=== PATIENT | male | born 2000 | race Caucasian/White ===

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

== ENCOUNTER 2023-03-23 11:49 | Observation (INO) ==
[2023-03-23 11:58] VITALS: BMI 19.5
--- NOTE | 2023-03-23 12:13 | DR.BITE ---
HPI Time Seen Time Seen by Provider: 03/23/23 12:07 PCP Primary Care Physician: Gabrielle Barksdale Complaint/Symptoms Chief Complaint Doctor Comments: 22 y/o male presents with pain/swelling of right hand. Was fine last pm going to bed. Awoke at 0300 with pain, swelling, redness of the dorsal right hand. Pain is sharp, constant, radiates up the left arm. Having associated tenderness in the left axilla. Feeling warm, having chills. Pain worse with moving R fingers, palpation. Nothing makes it better. + associated nausea, abdominal cramping. Was sleeping in a bunk house, with known black widows around. Chief Complaint:: Suspected spider bite to right hand - noticed Nurses notes reviewed Nurses Notes Review: Yes Source History Provided: Patient and Parent Mode of Arrival Mode of Arrival: Ambulatory Timing Onset of Chief Complaint: 03/23/23 PMH PMH Past Medical History: Yes Past Medical History: Anemia, Anxiety, Depression, Migraines and GERD Past Surgical History: Yes Surgical History: Appendectomy Past Surgical History Comment: Oral surgery Family History History of Family Medical Conditions: No Social History Does patient currently use any type of tobacco product: Yes Have you used tobacco products in the last 12 months: Yes Type of Tobacco Use: Smokeless How many years tobacco product used: 5 Does any household member use tobacco: Yes Alcohol Use: Occasionally Do you use any recreational Drugs:: No Lives With: Family Lives Where: Home Infectious screening Have you traveled outside the country in the last 6 months?: No Isolation: Standard ROS Review of Systems Constitutional: Chills Eyes: No Symptoms Reported ENTM: No Symptoms Reported Respiratoy: No Symptoms Reported Cardiovascular: Palpitations Gastrointestinal/Abdominal: Abdominal Pain and Nausea Genitourinary: No Symptoms Reported Neurological: No Symptoms Reported Musculoskeletal: Muscle Pain Integumentary: No Symptoms Reported Hematologic/Lymphatic: No Symptoms Reported All Other Systems: Reviewed and Negative PE Vital Signs Vital Signs: Temp Pulse Resp BP Pulse Ox O2 Del Method 09/24/17 10:39 133/59 03/23/23 14:22 18 03/23/23 12:56 18 03/23/23 12:55 18 03/23/23 11:51 99.1 F 74 123/56 98 Room Air Constitutional General Appearance: Alert and In No Apparent Distress Eyes Eye exam: PERRL and EOMI ENT ENT Exam: Mucous Membranes Moist Neck Neck Exam: Normal Inspection Respiratory Respiratory Exam: Normal Lung Sounds Bilat; negative Accessory Muscle Use or Re spiratory Distress Cardiovascular Cardiovascular Exam: Regular Rate, Normal Rhythm and Normal Heart Sounds Abdominal Exam Abdominal Exam: Normal Bowel Sounds and Soft; negative Tenderness Extremities Extremities Exam: negative Edema Back Back Exam: Normal Inspection Other Exam Other Exam: R hand - + tender, erythema with swelling, or dorsal R hand, between 3rd/4th MCP jts, w/1 mm opening of center. + streaking up dorsal R hand, into forearm. + pain with ROM of fingers. COURSE Treatment Treatment: 22 y/o male awoke with R hand pain, does appear to be from a spider bite (was fine going to bed few hours prior). W/u initiated. PT given IV fluids, IV toradol/dilaudid/zofran. 1520 -WBC elevated to 15K. Labs otherwise acceptable. X-ray acceptable. Pt given IV clindamycin. Recommend admission for further treatment. Possible black bite, in view of his associated symptoms. Call put out to Dr Smith, drafter refrigeration for admissions. Pt admitted. ROR Labs Reviewed Laboratory Results Reviewed?: Yes Result Diagrams: 03/23/23 12:45 03/23/23 12:45 Laboratory: WBC 15.1 X10^3/uL (3.6-10.0) H 03/23/23 12:45 RBC 4.90 X10^6/uL (4.7-6.0) 03/23/23 12:45 Hgb 15.2 g/dL (13.5-18.0) 03/23/23 12:45 Hct 43.3 % (42.0-54.0) 03/23/23 12:45 MCV 88.4 fL (80.0-100.0) 03/23/23 12:45 MCH 31.0 pg (27.0-34.0) 03/23/23 12:45 MCHC 35.1 g/dL (33.0-35.0) H 03/23/23 12:45 RDW 12.5 % (11.6-16.5) 03/23/23 12:45 Plt Count 263 X10^3/uL (150.0-450.0) 03/23/23 12:45 MPV 7.5 fL (7.4-11.0) 03/23/23 12:45 Neut % (Auto) 85.7 % (42.0-75.0) H 03/23/23 12:45 Lymph % (Auto) 4.1 % (21.0-51.0) L 03/23/23 12:45 [place] % (Auto) 10.1 % (0.0-13.0) 03/23/23 12:45 Eos % (Auto) 0.0 % (0.9-2.9) L 03/23/23 12:45 Baso % (Auto) 0.1 % (0.2-1.0) L 03/23/23 12:45 Neut # (Auto) 13.0 x10^3/uL (2.2-4.8) H 03/23/23 12:45 Lymph # (Auto) 0.6 X10^3/uL (1.3-2.9) L 03/23/23 12:45 [place] # (Auto) 1.5 x10^3/uL (0.3-0.8) H 03/23/23 12:45 Eos # (Auto) 0.0 x10^3/uL (0.0-0.2) 03/23/23 12:45 Baso # (Auto) 0.0 X10^3/uL (0.0-0.1) 03/23/23 12:45 Absolute Nucleated RBC 0.0 /100WBC 03/23/23 12:45 Sodium 138 mmol/L (136-145) 03/23/23 12:45 Corrected Sodium TNP 03/23/23 12:45 Potassium 3.8 mmol/L (3.5-5.1) 03/23/23 12:45 Chloride 100 mmol/L (98-107) 03/23/23 12:45 Carbon Dioxide 28.5 mmol/L (21-32) 03/23/23 12:45 BUN 12 mg/dL (7-18) 03/23/23 12:45 Creatinine 0.97 mg/dL (0.70-1.30) 03/23/23 12:45 Est GFR (MDRD) Af Amer > 60 (>60) 03/23/23 12:45 Est GFR (MDRD) Non-Af > 60 (>60) 03/23/23 12:45 Glucose 93 mg/dL (65-99) 03/23/23 12:45 Lactic Acid 1.0 mmol/L (0.4-2.0) 03/23/23 12:45 Calcium 8.4 mg/dL (8.5-10.1) L 03/23/23 12:45 Corrected Calcium TNP 03/23/23 12:45 Total Bilirubin 1.50 mg/dL (0.2-1.0) H 03/23/23 12:45 AST 25 Units/L (15-37) 03/23/23 12:45 ALT 37 Units/L (12-78) 03/23/23 12:45 Alkaline Phosphatase 67 Units/L (46-116) 03/23/23 12:45 Creatine Kinase 146 Units/L (39-308) 03/23/23 12:45 Total Protein 7.0 g/dL (6.4-8.2) 03/23/23 12:45 Albumin 4.1 g/dL (3.4-5.0) 03/23/23 12:45 Globulin 2.9 g/dL (2.5-4.5) 03/23/23 12:45 Albumin/Globulin Ratio 1.4 Ratio (1.1-2.1) 03/23/23 12:45 WBC elevated XRAY XRAY Interpreted by: Self X-ray Results: No gas formation on x-ray. Opioid Opioid Risk Tool Total: 0 Total Score Risk Category: Low Risk Copyright: Rodney MILES predicting aberrant behaviors Discharge Plan Diagnosis Discharge Problem: Cellulitis and abscess of hand Discharge Plan Condition: Stable
[2023-03-23] MEDS ORDERED: DILAUDID INJ IVP ONE ×2 (12:18→14:11)
[2023-03-23] MEDS ORDERED: TORADOL 30 MG VIAL IVP ONE (12:18)
[2023-03-23] MEDS ORDERED: NS 1,000 ML IV 1,000 ML IV ONE (12:18)
[2023-03-23] MEDS ORDERED: TORADOL 30 MG VIAL ONE (12:30)
[2023-03-23] MEDS ORDERED: DILAUDID INJ ONE ×2 (12:30→14:13)
[2023-03-23] MEDS ORDERED: NS 1,000 ML IV 1,000 ML ONE ×2 (12:30→21:00)
[2023-03-23] MEDS ORDERED: ZOFRAN INJ 4 MG VIAL IVP ONE (12:33)
[2023-03-23] MEDS ORDERED: ZOFRAN INJ 4 MG VIAL ONE (12:35)
[2023-03-23 12:56] LABS: HEMOGLOBIN 15.2 g/dL (13.5-18.0)
[2023-03-23 13:00] LABS: BASOPHILS % (AUTO) 0.1 % (0.2-1.0); HEMATOCRIT 43.3 % (42.0-54.0); LYMPHOCYTES # (AUTO) 0.6 X10^3/uL (1.3-2.9); LYMPHOCYTES % (AUTO) 4.1 % (21.0-51.0); MEAN CORPUSCULAR HGB CONC 35.1 g/dL (33.0-35.0); MEAN CORPUSCULAR VOLUME 88.4 fL (80.0-100.0); MEAN PLATELET VOLUME 7.5 fL (7.4-11.0); MONOCYTES # (AUTO) 1.5 x10^3/uL (0.3-0.8); MONOCYTES % (AUTO) 10.1 % (0.0-13.0); NEUTROPHILS % (AUTO) 85.7 % (42.0-75.0); PLATELET COUNT 263 X10^3/uL (150.0-450.0); RED CELL DISTRIBUTION WIDTH 12.5 % (11.6-16.5); WHITE BLOOD COUNT 15.1 X10^3/uL (3.6-10.0)
[2023-03-23 13:08] LABS: ALANINE AMINOTRANSFERASE 37 Units/L (12-78); ALBUMIN 4.1 g/dL (3.4-5.0); ALKALINE PHOSPHATASE 67 Units/L (46-116); ASPARTATE AMINO TRANSFERASE 25 Units/L (15-37); BLOOD UREA NITROGEN 12 mg/dL (7-18); CALCIUM 8.4 mg/dL (8.5-10.1); CARBON DIOXIDE 28.5 mmol/L (21-32); CHLORIDE 100 mmol/L (98-107); CREATINE KINASE 146 Units/L (39-308); CREATININE 0.97 mg/dL (0.70-1.30); GLUCOSE 93 mg/dL (65-99); POTASSIUM 3.8 mmol/L (3.5-5.1); SODIUM 138 mmol/L (136-145); eGFR NON BLACK RACES > 60 (>60)
[2023-03-23] MEDS ORDERED: CLEOCIN 600 MG IV PREMIX 600 MG/50 ML BAG IV ONE ×2 (14:10→14:13)
[2023-03-23] MEDS ORDERED: ZOFRAN INJ 4 MG VIAL IVP PRN (16:40)
[2023-03-23] MEDS: DILAUDID INJ IVP PRN ×2 (16:52→21:09)
[2023-03-23] MEDS: PHENERGAN INJ 25 MG IM PRN (19:28)
[2023-03-23] MEDS: CLEOCIN 600 MG IV PREMIX 600 MG/50 ML BAG IV SCH (21:08)
[2023-03-24] MEDS: CLEOCIN 600 MG IV PREMIX 600 MG/50 ML BAG IV SCH ×3 (05:09→21:18)
[2023-03-24 05:23] LABS: BASOPHILS % (AUTO) 0.4 % (0.2-1.0); EOSINOPHILS % (AUTO) 0.6 % (0.9-2.9); HEMATOCRIT 39.5 % (42.0-54.0); HEMOGLOBIN 13.9 g/dL (13.5-18.0); LYMPHOCYTES # (AUTO) 1.2 X10^3/uL (1.3-2.9); LYMPHOCYTES % (AUTO) 16.1 % (21.0-51.0); MEAN CORPUSCULAR HEMOGLOBIN 31.5 pg (27.0-34.0); MEAN CORPUSCULAR HGB CONC 35.2 g/dL (33.0-35.0); MEAN CORPUSCULAR VOLUME 89.3 fL (80.0-100.0); MEAN PLATELET VOLUME 8.3 fL (7.4-11.0); MONOCYTES # (AUTO) 1.4 x10^3/uL (0.3-0.8); MONOCYTES % (AUTO) 19.2 % (0.0-13.0); NEUTROPHILS # (AUTO) 4.6 x10^3/uL (2.2-4.8); NEUTROPHILS % (AUTO) 63.7 % (42.0-75.0); PLATELET COUNT 253 X10^3/uL (150.0-450.0); RED BLOOD COUNT 4.42 X10^6/uL (4.7-6.0); RED CELL DISTRIBUTION WIDTH 12.8 % (11.6-16.5); WHITE BLOOD COUNT 7.2 X10^3/uL (3.6-10.0)
[2023-03-24 05:32] LABS: ALANINE AMINOTRANSFERASE 31 Units/L (12-78); ALBUMIN 3.5 g/dL (3.4-5.0); ALKALINE PHOSPHATASE 55 Units/L (46-116); ASPARTATE AMINO TRANSFERASE 30 Units/L (15-37); BLOOD UREA NITROGEN 15 mg/dL (7-18); CALCIUM 8.2 mg/dL (8.5-10.1); CHLORIDE 102 mmol/L (98-107); CREATININE 0.92 mg/dL (0.70-1.30); GLUCOSE 101 mg/dL (65-99); POTASSIUM 3.8 mmol/L (3.5-5.1); SODIUM 139 mmol/L (136-145); TOTAL PROTEIN 6.2 g/dL (6.4-8.2); eGFR NON BLACK RACES > 60 (>60)
--- NOTE | 2023-03-24 05:38 | RAD ---
HISTORYSuspected spider bite to right hand - noticedSTUDYHAND, RIGHT four viewCOMPARISONNoneFINDINGSNo acute cortical disruption or dislocation is identified. The soft tissues appear unremarkable. The carpal bones appear aligned without evidence for fracture.IMPRESSIONNo acute fracture or dislocation.Electronically signed by: JOLENE SUMNER (Mar 24, 2023 05:37:35)
[2023-03-24] MEDS: DILAUDID INJ IVP PRN (07:30)
[2023-03-24] MEDS: PHENERGAN INJ 25 MG IM PRN (07:31)
[2023-03-24] MEDS ORDERED: NORCO 5/325 MG TAB PO PRN (09:15)
[2023-03-24] MEDS ORDERED: PEPCID TAB 40 MG ONE (09:32)
[2023-03-24] MEDS ORDERED: BENADRYL CAP/TAB 25 MG PO ONE (09:32)
[2023-03-24] MEDS: BENADRYL CAP/TAB 25 MG PO SCH ×3 (09:34→21:18)
[2023-03-24] MEDS: PEPCID TAB 40 MG PO SCH ×2 (09:34→20:02)
[2023-03-24] MEDS: TORADOL 15 MG VIAL IVP SCH ×2 (09:34→16:25)
[2023-03-24] MEDS ORDERED: DILAUDID INJ IVP ONE (17:14)
[2023-03-24] MEDS: BACTRIM DS TAB PO SCH ×2 (17:49→20:02)
[2023-03-24] MEDS: BACTROBAN TOPICAL OINT TOP SCH ×2 (17:49→21:18)
[2023-03-24] MEDS: MOTRIN TAB 600 MG PO SCH ×2 (17:49→21:18)
[2023-03-24] MEDS: NS 1,000 ML IV 1,000 ML IV SCH (17:50)
[2023-03-24] MEDS: NORCO 5/325 MG TAB PO PRN (22:02)
[2023-03-25] MEDS: TORADOL 15 MG VIAL IVP SCH (00:31)
[2023-03-25] MEDS: NS 1,000 ML IV 1,000 ML IV SCH ×5 (02:01→21:09)
[2023-03-25] MEDS: NORCO 5/325 MG TAB PO PRN ×2 (04:10→08:21)
[2023-03-25] MEDS: BENADRYL CAP/TAB 25 MG PO SCH ×4 (04:10→21:09)
[2023-03-25] MEDS ORDERED: HIBICLENS WASH ONE (05:23)
[2023-03-25] MEDS: MOTRIN TAB 600 MG PO SCH ×3 (05:53→21:08)
[2023-03-25] MEDS: BACTROBAN TOPICAL OINT TOP SCH ×3 (05:53→21:08)
[2023-03-25] MEDS: CLEOCIN 600 MG IV PREMIX 600 MG/50 ML BAG IV SCH ×3 (05:53→21:09)
[2023-03-25] MEDS: HIBICLENS WASH EXT PRN ×3 (05:54→21:08)
[2023-03-25 06:41] LABS: BASOPHILS % (AUTO) 0.8 % (0.2-1.0); EOSINOPHILS # (AUTO) 0.1 x10^3/uL (0.0-0.2); HEMATOCRIT 38.9 % (42.0-54.0); HEMOGLOBIN 13.4 g/dL (13.5-18.0); LYMPHOCYTES # (AUTO) 1.3 X10^3/uL (1.3-2.9); MEAN CORPUSCULAR HEMOGLOBIN 31.2 pg (27.0-34.0); MEAN CORPUSCULAR HGB CONC 34.3 g/dL (33.0-35.0); MEAN PLATELET VOLUME 8.3 fL (7.4-11.0); MONOCYTES # (AUTO) 0.9 x10^3/uL (0.3-0.8); MONOCYTES % (AUTO) 18.1 % (0.0-13.0); NEUTROPHILS # (AUTO) 2.7 x10^3/uL (2.2-4.8); NEUTROPHILS % (AUTO) 53.1 % (42.0-75.0); PLATELET COUNT 213 X10^3/uL (150.0-450.0); RED BLOOD COUNT 4.28 X10^6/uL (4.7-6.0); RED CELL DISTRIBUTION WIDTH 12.6 % (11.6-16.5); WHITE BLOOD COUNT 5.2 X10^3/uL (3.6-10.0)
[2023-03-25 06:44] LABS: ALANINE AMINOTRANSFERASE 29 Units/L (12-78); ALKALINE PHOSPHATASE 46 Units/L (46-116); ASPARTATE AMINO TRANSFERASE 48 Units/L (15-37); BLOOD UREA NITROGEN 11 mg/dL (7-18); CARBON DIOXIDE 26.2 mmol/L (21-32); CHLORIDE 106 mmol/L (98-107); COR CA(FOR HYPOALB) 8.8 mg/dL (8.5-10.1); CREATININE 1.03 mg/dL (0.70-1.30); GLUCOSE 86 mg/dL (65-99); SODIUM 140 mmol/L (136-145); TOTAL PROTEIN 5.6 g/dL (6.4-8.2); eGFR NON BLACK RACES > 60 (>60)
[2023-03-25] MEDS: PEPCID TAB 40 MG PO SCH ×2 (08:20→20:19)
[2023-03-25] MEDS: BACTRIM DS TAB PO SCH ×2 (08:21→20:19)
[2023-03-25] MEDS ORDERED: DILAUDID INJ IVP ONE (13:17)
[2023-03-25] MEDS ORDERED: NORCO 7.5/325 MG TAB PO PRN (13:18)
[2023-03-25] MEDS: PHENERGAN INJ 25 MG IM PRN (13:19)
[2023-03-25] MEDS: XANAX PO PRN ×2 (13:55→20:19)
--- NOTE | 2023-03-25 18:33 | DR.H&P ---
H&P - History & Physical for Day of: H&P Date: 03/23/23 - Chief Complaint Chief Complaint: PAIN WITH REDNESS AND SWELLING TO RIGHT HAND - History of Present Illness History of Present Illness: PT IS 22 WM, ER ADMISSION AFTER PRESENTING WITH CO "WOKE UP" WITH REDNESS AND SWELLING TO BASE OF RIGHT MIDDLE AND 4TH FINGER, EXTENDING UP HIS WRIST AND FA. PT REPORTS ONSET OF NAUSEA, WEAKNESS AND DIZZINESS THAT STARTING AFTER GETTING UP FROM BED ON FRIDAY MORNING. PT WAS CONCERNED ABOUT POSSIBLE "BLACK SPIDER BITE" PT DENIES ANY KNOWN BITE OR INJURY, DENIES FEELING ANY BITE OR STING SENSATIONS. PT HAS PMH OF GERD AND CLAUDE. PT ADMITTED FOR TREATMENT OF ACUTE CELLULITIS. - Past Medical History Past Medical History: Depression, Anxiety, Anemia, GERD, Migraines - Past Surgical History Surgical History: Appendectomy - Social History Does patient currently use any type of tobacco product: Yes Have you used tobacco products in the last 12 months: Yes Type of Tobacco Use: Smokeless How many years tobacco product used: 5 Does any household member use tobacco: Yes Alcohol Use: Occasionally Drug Use: None - Medications Home Medications: Home Medications Medication Instructions Recorded Confirmed Type NK 03/23/23 03/23/23 History - Review of Systems Constitutional: Fever, Chills, Sweats, Malaise Eyes: No Symptoms Reported ENT: No Symptoms Reported Respiratory: No Symptoms Reported Cardiovascular: Chest Pain Gastrointestinal: Nausea Genitourinary: No Symptoms Reported Musculoskeletal: Hand Pain Skin: Rash Neurological: Other ("VERITGO") - Physical Exam Vital Signs: Temperature 97.7 F Temperature 99.1 F Pulse Rate [Left Radial] 68 Pulse Rate 74 Respiratory Rate 18 Respiratory Rate 18 Blood Pressure [Left Arm] 120/78 Blood Pressure 123/56 O2 Sat by Pulse Oximetry 98 O2 Sat by Pulse Oximetry 98 Oriented: Normal Eyes: Normal Ear: Normal Nose: Normal Throat: Normal Respiratory: Clear Throughout Cardiovascular: Tachycardia. negative: Murmur, Edema : Normal Auscultation: Bowel Sounds: Normal Palpation: Normal Tenderness: Normal Skin: Red, Tender, Hot Musculoskeletal: Right, Hand (LOCATED AT THE BASE OF 3RD ADN 4TH MCJ), Swelling, Tender Psychiatric: Anxiety Mood Description: Anxious Affect: Anxious Speech Pattern: Clear, Appropriate - Assessment/Plan (1) Cellulitis and abscess of hand Status: Acute Plan: CULTURES OBTAINED ON ADMISSION. IV HYDRATION, PAIN AND NAUSEA CONTROL. XRAY OF R HAND ON ER ADMISSION. ELEVATE RLE, IV ATBX THERAPY, CPK ORDERED IN ER. PRN CARDIAC AND RESP THERAPY - Allergies Allergies/Adverse Reactions: Allergies Allergy/AdvReac Type Severity Reaction Status Date / Time No Known Drug Allergies Allergy Unknown Verified 03/24/23 10:23
--- NOTE | 2023-03-25 18:37 | PCM.PROG ---
Progress Note - Progress Note for Day of Date of Exam: 03/24/23 - Subjective Subjective: PT IS 22 WM, ER ADMISSION WITH CELLULITIS TO THE BASE OF 3RD AND 4TH FINGERS WITH IMPROVING REDNESS THIS MORNING. RED STREAKING TO FA AND WRIST NOW RESOLVED WITH LOCALIZED REDNESS TO BASE OF FINGERS WITH INTACT BLISTER FORMATION. WBC AT 7.2 FROM 15.1 ON ADMISSION. PT HAS BEEN ON IV CLINDAMYCIN. PT REPORTS "THROBBING" PAIN TO HAD. WOUND CARE ORDERED WITH INSTRUCTIONS FOR ELEVATING RUE. PT IS ON PEPCID, BENADRYL AND MOTRIN PO. PT HAS RECEIVED IV DILAUDID FOR PAIN CONTROL AND IV TORADOL WITH SHORT TERM RELIEF. - Past Medical Family Social History Past Med/Fam/Surg Hx: No changes since H&P Allergies: Allergies No Known Drug Allergies Allergy (Unknown, Verified 03/24/23 10:23) Onset Date: 10/14/2018 - Review of Systems ROS: No change since H&P - Vital Signs and I&O's Vital Signs: Temperature 97.7 F Temperature 99.1 F Pulse Rate [Left Radial] 68 Pulse Rate 74 Respiratory Rate 18 Respiratory Rate 18 Blood Pressure [Left Arm] 120/78 Blood Pressure 123/56 O2 Sat by Pulse Oximetry 98 O2 Sat by Pulse Oximetry 98 Intake and Output: Intake & Output 03/23/23 03/24/23 03/25/23 03/26/23 11:59 11:59 11:59 11:59 Intake Total 480 / 480 2787 / 2787 4343 / 4343 Balance 480 / 480 2787 / 2787 4343 / 4343 - Physical Exam Oriented: Normal Eyes: Normal Ear: Normal Nose: Normal Throat: Normal Cardiovascular: Tachycardia. negative: Murmur, Edema : Normal Auscultation: Bowel Sounds: Normal Tenderness: Normal Skin: Red, Tender, Hot Musculoskeletal: Right, Hand (LOCATED AT THE BASE OF 3RD ADN 4TH MCJ), Swelling, Tender Psychiatric: Anxiety Mood Description: Anxious Affect: Anxious Speech Pattern: Clear, Appropriate - Laboratory and Diagnostics Result Diagrams: 03/25/23 05:11 03/25/23 05:11 Labs: 03/23/23 13:05 Blood Blood Culture - Preliminary 03/23/23 12:45 Blood Blood Culture - Preliminary Laboratory WBC 5.2 X10^3/uL (3.6-10.0) 03/25/23 05:11 RBC 4.28 X10^6/uL (4.7-6.0) L 03/25/23 05:11 Hgb 13.4 g/dL (13.5-18.0) L 03/25/23 05:11 Hct 38.9 % (42.0-54.0) L 03/25/23 05:11 MCV 91.0 fL (80.0-100.0) 03/25/23 05:11 MCH 31.2 pg (27.0-34.0) 03/25/23 05:11 MCHC 34.3 g/dL (33.0-35.0) 03/25/23 05:11 RDW 12.6 % (11.6-16.5) 03/25/23 05:11 Plt Count 213 X10^3/uL (150.0-450.0) 03/25/23 05:11 MPV 8.3 fL (7.4-11.0) 03/25/23 05:11 Neut % (Auto) 53.1 % (42.0-75.0) 03/25/23 05:11 Lymph % (Auto) 26.0 % (21.0-51.0) 03/25/23 05:11 [place] % (Auto) 18.1 % (0.0-13.0) H 03/25/23 05:11 Eos % (Auto) 2.0 % (0.9-2.9) 03/25/23 05:11 Baso % (Auto) 0.8 % (0.2-1.0) 03/25/23 05:11 Neut # (Auto) 2.7 x10^3/uL (2.2-4.8) 03/25/23 05:11 Lymph # (Auto) 1.3 X10^3/uL (1.3-2.9) 03/25/23 05:11 [place] # (Auto) 0.9 x10^3/uL (0.3-0.8) H 03/25/23 05:11 Eos # (Auto) 0.1 x10^3/uL (0.0-0.2) 03/25/23 05:11 Baso # (Auto) 0.0 X10^3/uL (0.0-0.1) 03/25/23 05:11 Absolute Nucleated RBC 0.0 /100WBC 03/25/23 05:11 Sodium 140 mmol/L (136-145) 03/25/23 05:11 Corrected Sodium TNP 03/25/23 05:11 Potassium 4.0 mmol/L (3.5-5.1) 03/25/23 05:11 Chloride 106 mmol/L (98-107) 03/25/23 05:11 Carbon Dioxide 26.2 mmol/L (21-32) 03/25/23 05:11 BUN 11 mg/dL (7-18) 03/25/23 05:11 Creatinine 1.03 mg/dL (0.70-1.30) 03/25/23 05:11 Est GFR (MDRD) Af Amer > 60 (>60) 03/25/23 05:11 Est GFR (MDRD) Non-Af > 60 (>60) 03/25/23 05:11 Glucose 86 mg/dL (65-99) 03/25/23 05:11 Lactic Acid 1.0 mmol/L (0.4-2.0) 03/23/23 12:45 Calcium 8.0 mg/dL (8.5-10.1) L 03/25/23 05:11 Corrected Calcium 8.8 mg/dL (8.5-10.1) 03/25/23 05:11 Total Bilirubin 0.40 mg/dL (0.2-1.0) 03/25/23 05:11 AST 48 Units/L (15-37) H 03/25/23 05:11 ALT 29 Units/L (12-78) 03/25/23 05:11 Alkaline Phosphatase 46 Units/L (46-116) 03/25/23 05:11 Creatine Kinase 146 Units/L (39-308) 03/23/23 12:45 Total Protein 5.6 g/dL (6.4-8.2) L 03/25/23 05:11 Albumin 3.0 g/dL (3.4-5.0) L 03/25/23 05:11 Globulin 2.6 g/dL (2.5-4.5) 03/25/23 05:11 Albumin/Globulin Ratio 1.2 Ratio (1.1-2.1) 03/25/23 05:11 - Plan (1) Cellulitis and abscess of hand Status: Acute Plan: CULTURES OBTAINED ON ADMISSION. IV HYDRATION, PAIN AND NAUSEA CONTROL. XRAY OF R HAND ON ER ADMISSION. ELEVATE RLE, IV ATBX THERAPY, CPK ORDERED IN ER. PRN CARDIAC AND RESP THERAPY
--- NOTE | 2023-03-25 18:41 | PCM.PROG ---
Progress Note - Progress Note for Day of Date of Exam: 03/25/23 - Subjective Subjective: PT IS 22 WM, ER ADMISSION WITH CELLULITIS TO THE BASE OF 3RD AND 4TH FINGERS WITH IMPROVING REDNESS THIS MORNING. RED STREAKING TO FA AND WRIST NOW RESOLVED WITH LOCALIZED REDNESS TO BASE OF FINGERS WITH INTACT BLISTER FORMATION, IMPROVING SWELLING TO HAND. PT HAS BEEN AFEBRILE. WBC AT 5.2 FROM 15.1 ON ADMISSION. PT HAS BEEN ON IV CLINDAMYCIN AND PO BACTRIM.PT REPORTS "THROBBING" PAIN TO HAD. WOUND CARE ORDERED WITH INSTRUCTIONS FOR ELEVATING RUE. A CULTURE WAS OBTAINED TODAY AFTER SMALL BLISTER RUPTURE, NO PURULENT DC NOTED. PT IS ON PEPCID, BENADRYL AND MOTRIN PO. PT HAS RECEIVED IV DILAUDID FOR PAIN CONTROL AND IV TORADOL WITH SHORT TERM RELIEF. PT HAS CO ARTHRALGIAS THIS AM, UP TO ELBOW AND SHOULDER TO RUE. NO PALPALBE LYMPH NODES TO EPITROCHLEAR OR RIGHT AXILLARY ON EXAMINATION. PT IS CO ANXIETY WITH HX OF CLAUDE AND REQUESTING SOMETHING TO HELP WITH HIS NERVES. - Past Medical Family Social History Past Med/Fam/Surg Hx: No changes since H&P Allergies: Allergies No Known Drug Allergies Allergy (Unknown, Verified 03/24/23 10:23) Onset Date: 10/14/2018 - Review of Systems ROS: No change since H&P - Vital Signs and I&O's Vital Signs: Temperature 97.7 F Temperature 99.1 F Pulse Rate [Left Radial] 68 Pulse Rate 74 Respiratory Rate 18 Respiratory Rate 18 Blood Pressure [Left Arm] 120/78 Blood Pressure 123/56 O2 Sat by Pulse Oximetry 98 O2 Sat by Pulse Oximetry 98 Intake and Output: Intake & Output 03/23/23 03/24/23 03/25/23 03/26/23 11:59 11:59 11:59 11:59 Intake Total 480 / 480 2787 / 2787 4343 / 4343 Balance 480 / 480 2787 / 2787 4343 / 4343 - Physical Exam Oriented: Normal Eyes: Normal Ear: Normal Nose: Normal Throat: Normal Respiratory: Normal Cardiovascular: Tachycardia. negative: Murmur, Edema : Normal Auscultation: Bowel Sounds: Normal Tenderness: Normal Skin: Red, Tender, Hot Musculoskeletal: Right, Hand (LOCATED AT THE BASE OF 3RD ADN 4TH MCJ), Swelling, Tender Psychiatric: Anxiety Mood Description: Anxious Affect: Anxious Speech Pattern: Clear, Appropriate - Laboratory and Diagnostics Result Diagrams: 03/25/23 05:11 03/25/23 05:11 Labs: 03/23/23 13:05 Blood Blood Culture - Preliminary 03/23/23 12:45 Blood Blood Culture - Preliminary Laboratory WBC 5.2 X10^3/uL (3.6-10.0) 03/25/23 05:11 RBC 4.28 X10^6/uL (4.7-6.0) L 03/25/23 05:11 Hgb 13.4 g/dL (13.5-18.0) L 03/25/23 05:11 Hct 38.9 % (42.0-54.0) L 03/25/23 05:11 MCV 91.0 fL (80.0-100.0) 03/25/23 05:11 MCH 31.2 pg (27.0-34.0) 03/25/23 05:11 MCHC 34.3 g/dL (33.0-35.0) 03/25/23 05:11 RDW 12.6 % (11.6-16.5) 03/25/23 05:11 Plt Count 213 X10^3/uL (150.0-450.0) 03/25/23 05:11 MPV 8.3 fL (7.4-11.0) 03/25/23 05:11 Neut % (Auto) 53.1 % (42.0-75.0) 03/25/23 05:11 Lymph % (Auto) 26.0 % (21.0-51.0) 03/25/23 05:11 [place] % (Auto) 18.1 % (0.0-13.0) H 03/25/23 05:11 Eos % (Auto) 2.0 % (0.9-2.9) 03/25/23 05:11 Baso % (Auto) 0.8 % (0.2-1.0) 03/25/23 05:11 Neut # (Auto) 2.7 x10^3/uL (2.2-4.8) 03/25/23 05:11 Lymph # (Auto) 1.3 X10^3/uL (1.3-2.9) 03/25/23 05:11 [place] # (Auto) 0.9 x10^3/uL (0.3-0.8) H 03/25/23 05:11 Eos # (Auto) 0.1 x10^3/uL (0.0-0.2) 03/25/23 05:11 Baso # (Auto) 0.0 X10^3/uL (0.0-0.1) 03/25/23 05:11 Absolute Nucleated RBC 0.0 /100WBC 03/25/23 05:11 Sodium 140 mmol/L (136-145) 03/25/23 05:11 Corrected Sodium TNP 03/25/23 05:11 Potassium 4.0 mmol/L (3.5-5.1) 03/25/23 05:11 Chloride 106 mmol/L (98-107) 03/25/23 05:11 Carbon Dioxide 26.2 mmol/L (21-32) 03/25/23 05:11 BUN 11 mg/dL (7-18) 03/25/23 05:11 Creatinine 1.03 mg/dL (0.70-1.30) 03/25/23 05:11 Est GFR (MDRD) Af Amer > 60 (>60) 03/25/23 05:11 Est GFR (MDRD) Non-Af > 60 (>60) 03/25/23 05:11 Glucose 86 mg/dL (65-99) 03/25/23 05:11 Lactic Acid 1.0 mmol/L (0.4-2.0) 03/23/23 12:45 Calcium 8.0 mg/dL (8.5-10.1) L 03/25/23 05:11 Corrected Calcium 8.8 mg/dL (8.5-10.1) 03/25/23 05:11 Total Bilirubin 0.40 mg/dL (0.2-1.0) 03/25/23 05:11 AST 48 Units/L (15-37) H 03/25/23 05:11 ALT 29 Units/L (12-78) 03/25/23 05:11 Alkaline Phosphatase 46 Units/L (46-116) 03/25/23 05:11 Creatine Kinase 146 Units/L (39-308) 03/23/23 12:45 Total Protein 5.6 g/dL (6.4-8.2) L 03/25/23 05:11 Albumin 3.0 g/dL (3.4-5.0) L 03/25/23 05:11 Globulin 2.6 g/dL (2.5-4.5) 03/25/23 05:11 Albumin/Globulin Ratio 1.2 Ratio (1.1-2.1) 03/25/23 05:11 - Plan (1) Cellulitis and abscess of hand Status: Acute Plan: CULTURES OBTAINED ON ADMISSION. IV HYDRATION, PAIN AND NAUSEA CONTROL. XRAY OF R HAND ON ER ADMISSION. ELEVATE RLE, IV ATBX THERAPY, CPK ORDERED IN ER. PRN CARDIAC AND RESP THERAPY
[2023-03-26] MEDS: BENADRYL CAP/TAB 25 MG PO SCH ×2 (05:00→10:12)
[2023-03-26] MEDS: NS 1,000 ML IV 1,000 ML IV SCH ×2 (05:29→10:21)
[2023-03-26] MEDS: BACTROBAN TOPICAL OINT TOP SCH (05:29)
[2023-03-26] MEDS: MOTRIN TAB 600 MG PO SCH (05:30)
[2023-03-26] MEDS: CLEOCIN 600 MG IV PREMIX 600 MG/50 ML BAG IV SCH (05:30)
[2023-03-26 05:58] LABS: BASOPHILS % (AUTO) 0.9 % (0.2-1.0); EOSINOPHILS # (AUTO) 0.1 x10^3/uL (0.0-0.2); EOSINOPHILS % (AUTO) 2.8 % (0.9-2.9); ERYTHROCYTE SEDIMENTATION RATE 2 MM/HOUR (0-15); HEMATOCRIT 37.1 % (42.0-54.0); HEMOGLOBIN 12.9 g/dL (13.5-18.0); LYMPHOCYTES # (AUTO) 1.1 X10^3/uL (1.3-2.9); LYMPHOCYTES % (AUTO) 24.9 % (21.0-51.0); MEAN CORPUSCULAR HEMOGLOBIN 31.4 pg (27.0-34.0); MEAN CORPUSCULAR HGB CONC 34.7 g/dL (33.0-35.0); MEAN CORPUSCULAR VOLUME 90.5 fL (80.0-100.0); MEAN PLATELET VOLUME 8.2 fL (7.4-11.0); MONOCYTES # (AUTO) 0.7 x10^3/uL (0.3-0.8); MONOCYTES % (AUTO) 16.1 % (0.0-13.0); NEUTROPHILS # (AUTO) 2.5 x10^3/uL (2.2-4.8); NEUTROPHILS % (AUTO) 55.3 % (42.0-75.0); PLATELET COUNT 229 X10^3/uL (150.0-450.0); RED CELL DISTRIBUTION WIDTH 12.6 % (11.6-16.5); WHITE BLOOD COUNT 4.6 X10^3/uL (3.6-10.0)
[2023-03-26 06:08] LABS: ALANINE AMINOTRANSFERASE 31 Units/L (12-78); ALKALINE PHOSPHATASE 46 Units/L (46-116); ASPARTATE AMINO TRANSFERASE 54 Units/L (15-37); BLOOD UREA NITROGEN 8 mg/dL (7-18); CALCIUM 7.7 mg/dL (8.5-10.1); CARBON DIOXIDE 26.8 mmol/L (21-32); CHLORIDE 105 mmol/L (98-107); COR CA(FOR HYPOALB) 8.5 mg/dL (8.5-10.1); CREATININE 0.96 mg/dL (0.70-1.30); GLUCOSE 88 mg/dL (65-99); POTASSIUM 3.9 mmol/L (3.5-5.1); SODIUM 140 mmol/L (136-145); TOTAL PROTEIN 5.7 g/dL (6.4-8.2); eGFR NON BLACK RACES > 60 (>60)
[2023-03-26 08:05] VITALS: BP 103/60; PULSE 59; TEMP 97.6; O2SAT 99
[2023-03-26] MEDS ORDERED: TORADOL 15 MG VIAL IVP ONE (08:50)
[2023-03-26] MEDS: PEPCID TAB 40 MG PO SCH (10:12)
[2023-03-26] MEDS: BACTRIM DS TAB PO SCH (10:12)
== END 2023-03-26 12:15 | disposition home or self-care (01) ==
LOC: ER 11:49 → MED/SURG 11:49
PROVIDERS: ADMIT Internal Medicine; ATTEND Internal Medicine
DX: Y92.9 Unspecified place or not applicable; K21.9 Gastro-esophageal reflux disease without esophagitis; L02.511 Cutaneous abscess of right hand; S60.561A Insect bite (nonvenomous) of right hand, initial encounter; L03.113 Cellulitis of right upper limb; F41.8 Other specified anxiety disorders; W57.XXXA Bitten or stung by nonvenomous insect and other nonvenomous arthropods, initial encounter